=== PATIENT | female | born 1965 | race Caucasian/White ===

== ENCOUNTER 2017-07-07 01:01 | Emergency (ER) | payer BC ==
[~2017-07-07] VITALS: Ht 157.5 cm; Wt 85.5 kg
[2017-07-07 01:35] LABS: HEMATOCRIT 39.8 % (36.0-46.0); HEMOGLOBIN 13.1 G/DL (11.9-15.5); MCHC 32.9 G/DL (30.0-36.0); MCV 82.1 FL (83-99); PLATELET COUNT 401 K/uL (156-360); RBC DIS.WIDTH-CV 14.6 % (11.8-14.6); RBC DIS.WIDTH-SD 43.4 % (39-53); RED BLOOD COUNT 4.85 M/uL (3.80-5.20)
[2017-07-07 01:47] LABS: ALBUMIN 4.2 g/dL (3.2-4.8)
[2017-07-07 01:48] LABS: CHLORIDE 101 mEq/L (99-109); POTASSIUM 3.6 mEq/L (3.7-5.4); SODIUM 139 mEq/L (136-147)
[2017-07-07 01:50] LABS: GLUCOSE 188 mg/dL (70-99); TOTAL PROTEIN 7.9 g/dL (6.4-8.3)
[2017-07-07 01:52] LABS: TOTAL BILIRUBIN 0.3 mg/dL (0.0-1.0)
[2017-07-07 01:53] LABS: ALKALINE PHOSPHATASE 95 IU/L (3-129)
[2017-07-07 01:54] LABS: CREATININE 0.8 mg/dL (0.6-1.3); GFR ESTIMATE (CALCULATED) > 59 mL/min/
[2017-07-07 01:55] LABS: AST (GOT) 20 IU/L (2-34); UREA NITROGEN (BUN) 16 mg/dL (9-23)
[2017-07-07 01:56] LABS: ALT (GPT) 27 IU/L (3-49)
[2017-07-07 01:57] LABS: LIPASE 36 U/L (1.0-51.0)
[2017-07-07 02:05] LABS: QUANTITATIVE HCG < 4.0 MIU/ML
[2017-07-07 04:03] LABS: APPEARANCE CLOUDY ((CLEAR)); BILIRUBIN NEGATIVE; BLOOD SMALL; COLOR YELLOW ((YELLOW)); GLUCOSE (STRIP) NEGATIVE; KETONES NEGATIVE; LEUKOCYTES NEGATIVE; NITRITE NEGATIVE; PROTEIN (STRIP) NEGATIVE; SPECIFIC GRAVITY 1.024 (1.000-1.030); UROBILINOGEN 0.2 MG/DL (0.2-1.0)
[2017-07-07 04:05] LABS: BACTERIA RARE /HPF; EPITHELIAL CELLS 4+ /HPF; MUCUS TRACE /LPF; RED BLOOD CELLS 0-5 /HPF (0-5); UCUL ADDED? NO; WHITE BLOOD CELLS 0-5 /HPF (0-5)
[2017-07-07] MEDS ORDERED: PREDNISONE50 MG PO (06:17)
[2017-07-07] MEDS ORDERED: NORCO 5/3251 TABLET PO (06:17)
[2017-07-07 06:38] VITALS: BP 169/113
== END 2017-07-07 06:38 | disposition home or self-care (01) ==
LOC: EME 01:01
DX: R16.0 Hepatomegaly, not elsewhere classified (principal); E11.9 Type 2 diabetes mellitus without complications; K76.0 Fatty (change of) liver, not elsewhere classified; I10 Essential (primary) hypertension; Z90.49 Acquired absence of other specified parts of digestive tract; Z90.711 Acquired absence of uterus with remaining cervical stump; Z88.8 Allergy status to other drugs, medicaments and biological substances
CPT/HCPCS: 74177; 80053; 81003; 83690; 84702; 85027; 99281; 99284; J2270; J7030; J7512